=== PATIENT | male | born 1985 | race Two or more races ===

== ENCOUNTER 2023-07-18 22:46 | Emergency (ER) | payer SELFPAY ==
[~2023-07-18] VITALS: Ht 170.2 cm; Wt 95.6 kg
[2023-07-18 23:16] VITALS: PULSE 90; RESP 18; O2SAT 96
[2023-07-18] MEDS ORDERED: ONDANSETRON HCL 4 MG/2 ML VIAL IV ONE (23:30)
[2023-07-18] MEDS ORDERED: MORPHINE SULFATE 4 MG/ML SYR/VIAL IV ONE (23:30)
[2023-07-19] MEDS ORDERED: HYDROmorphone HCL 2 MG/ML VL/or syr IV ONE ×2 (01:15→04:00)
[2023-07-19] MEDS ORDERED: ONDANSETRON HCL 4 MG/2 ML VIAL IV ONE ×2 (01:15→04:00)
[2023-07-19] MEDS ORDERED: ETOMIDATE (2MG/ML) 20ML VIAL IV ONE ×2 (01:45)
[2023-07-19] MEDS ORDERED: HYDR-4902 PO ×3 (02:22→02:24)
[2023-07-19] MEDS ORDERED: IBU600T PO (02:25)
[2023-07-19 08:00] VITALS: BP 131/88; PULSE 87
[2023-07-19 08:15] VITALS: RESP 18; O2SAT 98
== END 2023-07-19 08:43 | disposition home or self-care (01) ==
LOC: EDBD 22:46 → ER 22:46
DX: S52.592A Other fractures of lower end of left radius, initial encounter for closed fracture (principal); S52.612A Displaced fracture of left ulna styloid process, initial encounter for closed fracture; R51.9 Headache, unspecified; W11.XXXA Fall on and from ladder, initial encounter; Y93.89 Activity, other specified; Y92.89 Other specified places as the place of occurrence of the external cause; Y99.8 Other external cause status
CPT/HCPCS: 29125; 70450; 73110; 94760; 94762; 96374; 96375; 96376; 99285; J1170; J2270; J2405